=== PATIENT | female | born 1990 | race African-American/Black ===

== ENCOUNTER 2017-10-21 23:06 | Emergency (ER) | payer OTHER ==
[~2017-10-21] VITALS: Ht 162.6 cm; Wt 50.8 kg
[2017-10-21] MEDS ORDERED: ATABEX EC CAPL1 EACH PO (23:15)
[2017-10-21] MEDS ORDERED: MULTIVITAMINS1 EAC4 (23:16)
== END 2017-10-22 03:51 | disposition home or self-care (01) ==
LOC: ER 23:06
DX: R10.32 Left lower quadrant pain (principal)

== ENCOUNTER 2017-12-04 13:01 | Emergency (ER) | payer OTHER ==
[~2017-12-04] VITALS: Ht 162.6 cm; Wt 49.9 kg
[~2017-12-04 13:01] MED LIST: ATABEX EC CAPL1 EACH PO; MULTIVITAMINS1 EAC4
== END 2017-12-04 19:31 | disposition home or self-care (01) ==
LOC: ER 13:01
DX: O23.42 Unspecified infection of urinary tract in pregnancy, second trimester (principal); Z34.02 Encounter for supervision of normal first pregnancy, second trimester

== ENCOUNTER 2018-05-01 07:08 | Inpatient (IN) | payer OTHER ==
[~2018-05-01] VITALS: Ht 162.6 cm; Wt 3.2 kg
== END 2018-05-03 18:51 | disposition home or self-care (01) | DRG 768 ==
LOC: LDR 07:08 → OB/GYN 19:19 → O/R 05-08 12:05
PROVIDERS: ADMIT Specialist
PROC: 10E0XZZ Delivery of Products of Conception, External Approach (ICD-10-PCS; principal; 2018-05-01)
PROC: 0DQP0ZZ Repair Rectum, Open Approach (ICD-10-PCS; 2018-05-01)
PROC: 3E033VJ Introduction of Other Hormone into Peripheral Vein, Percutaneous Approach (ICD-10-PCS; 2018-05-01)
PROC: 4A1HXCZ Monitoring of Products of Conception, Cardiac Rate, External Approach (ICD-10-PCS; 2018-05-01)
DX: O70.3 Fourth degree perineal laceration during delivery (principal); Z37.0 Single live birth; Z3A.39 39 weeks gestation of pregnancy

== ENCOUNTER 2020-10-30 13:00 | Inpatient (IN) | payer OTHER ==
[~2020-10-30] VITALS: Ht 162.6 cm; Wt 62.1 kg
== END 2020-11-13 13:14 | disposition home or self-care (01) | DRG 807 ==
LOC: OB/GYN 11-11 06:34 → LDR 11-11 06:34 → OB/GYN 11-11 10:11
PROVIDERS: ADMIT Specialist; ATTEND Specialist
PROC: 10E0XZZ Delivery of Products of Conception, External Approach (ICD-10-PCS; principal; 2020-11-11)
PROC: 0KQM0ZZ Repair Perineum Muscle, Open Approach (ICD-10-PCS; 2020-11-11)
PROC: 3E033VJ Introduction of Other Hormone into Peripheral Vein, Percutaneous Approach (ICD-10-PCS; 2020-11-11)
PROC: 4A1HXFZ Monitoring of Products of Conception, Cardiac Rhythm, External Approach (ICD-10-PCS; 2020-11-11)
DX: O99.824 Streptococcus B carrier state complicating childbirth (principal); O70.1 Second degree perineal laceration during delivery; Z37.0 Single live birth; Z3A.38 38 weeks gestation of pregnancy; Z20.822 Contact with and (suspected) exposure to COVID-19